=== PATIENT | female | born 1995 | race Caucasian/White ===

== ENCOUNTER 2020-05-25 09:51 | Outpatient (RCR) | payer BC, SELFPAY ==
[2015-09-18 20:12] VITALS: BMI 34.7
== END 2020-07-18 23:59 ==
LOC: IMMUN 09:51
PROVIDERS: Referring Provider Family Medicine; Visit Provider Family Medicine
DX: Z23 Encounter for immunization (principal)
CPT/HCPCS: 0001A; 0002A; 91300